=== PATIENT | female | born 1955 | race African-American/Black ===

== ENCOUNTER 2021-11-08 14:52 | Outpatient (CLI) | payer BC | END 2021-11-08 14:53 | disposition home or self-care (01) | LOC: CSHMAMMO 14:52 | PROVIDERS: ATTEND Family Medicine | DX: Z12.31 Encounter for screening mammogram for malignant neoplasm of breast (principal); Z80.3 Family history of malignant neoplasm of breast | CPT/HCPCS: 77063; 77067 ==

== ENCOUNTER 2021-12-27 22:23 | Inpatient (IN) | payer BC ==
[2021-12-27] MEDS ORDERED: Ondansetron PF 4 MG/2 ML Vial ONE ×2 (22:52→22:55)
[2021-12-27] MEDS ORDERED: Morphine 4 MG/ML VIAL ONE (22:55)
[2021-12-27 23:54] LABS: Bilirubin Neg (Negative); Blood, Urine Negative (Negative); Clarity Slightly Cloudy (Clear); Glucose, Urine (Dipstick) 50 mg/dL (Negative); Ketone, Urine 50 mg/dL (Negative); Leukocyte Negative (Negative); Nitrite Negative (Negative); Protein, Urine (Dipstick) 15 mg/dl (Neg-Trace); Specific Gravity, Urine 1.015 (1.002-1.036); Urobilinogen Normal mg/dL (Less than 2)
[2021-12-28] MEDS ORDERED: Piperacillin/Tazobactam 3.375 GM VIAL ONE (00:28)
[2021-12-28 01:22] LABS: ALT (SGPT) 12 U/L (8-55); AST (SGOT) 20 U/L (5-34); Albumin 4.3 g/dL (3.4-4.8); Alkaline Phosphatase 104 U/L (40-110); Anion Gap 13 mmol/L (10-20); BUN (Urea Nitrogen) 9 mg/dL (9.8-20.1); Bilirubin, Total 0.5 mg/dL (0.2-1.2); Calc. Creatinine Clearance 0 mL/min (70-130); Calcium 9.5 mg/dL (7.8-10.44); Carbon Dioxide 23 mmol/L (23-31); Chloride 104 mmol/L (98-107); Globulin 3.2 g/dL (2.4-3.5); Glucose 119 mg/dL (80-115); Lipase 10 U/L (8-78); Potassium 4.2 mmol/L (3.5-5.1); Protein, Total 7.5 g/dL (5.8-8.1); Sodium 136 mmol/L (136-145)
[2021-12-28 01:24] LABS: #Monocytes 0.2 10x3/uL (0.0-1.1); #Neutrophils 7.9 10x3/uL (1.5-8.4); %Basophils 0.2 % (0.0-2.0); %Lymphocytes 9.2 % (18.0-47.0); %Monocytes 2.2 % (0.0-10.0); %Neutrophils 88.2 % (40.0-75.0); Hemoglobin 13.8 g/dL (12.0-15.5); Mean Corpuscular HGB CONC 33.5 g/dL (32.0-36.0); Mean Corpuscular Volume 92.6 fl (81.6-98.3); Platelet Count 256 10x3/uL (150-450); Red Blood Cell (RBC) Count 4.45 10x6/uL (3.90-5.03)
[2021-12-28] MEDS ORDERED: Promethazine HCl 25 MG/ML VIAL ONE (01:52)
[2021-12-28] MEDS ORDERED: Morphine 4 MG/ML VIAL ONE (02:50)
[2021-12-28 04:04] LABS: SARS-CoV-2 NAA Rapid Test Not Detected (NotDetected)
[2021-12-28 04:10] VITALS: BMI 27.1
[2021-12-28] MEDS: Morphine 4 MG/ML VIAL SLOW IVP PRN ×5 (04:26→23:52)
[2021-12-28] MEDS: Sodium Chloride 0.9% 1,000 ML IV SCH ×2 (04:32→14:26)
[2021-12-28] MEDS ORDERED: FLU VACC QS2021-22(6MOS UP)/PF 60 MCG/0.5 ML SYRINGE IM ONE (04:45)
[2021-12-28] MEDS: Ondansetron PF 4 MG/2 ML Vial IVP PRN ×2 (08:33→14:24)
[2021-12-28] MEDS ORDERED: Mag-Al 1200 mg/1200 mg/30 ML UDCUP PO PRN (11:49)
[2021-12-28] MEDS ORDERED: Enoxaparin Sodium 40 MG/0.4 ML SYRINGE SC SCH (12:00)
[2021-12-28] MEDS: Famotidine/PF 20 mg/2ml Vial SLOW IVP SCH (19:50)
[2021-12-29] MEDS: Ondansetron PF 4 MG/2 ML Vial IVP PRN ×2 (00:01→04:52)
[2021-12-29] MEDS: Morphine 4 MG/ML VIAL SLOW IVP PRN ×5 (03:51→23:21)
[2021-12-29] MEDS: Sodium Chloride 0.9% 1,000 ML IV SCH (03:52)
[2021-12-29 05:12] LABS: #Monocytes 0.4 10x3/uL (0.0-1.1); %Basophils 0.4 % (0.0-2.0); %Eosinophils 0.1 % (0.0-6.0); %Monocytes 5.7 % (0.0-10.0); %Neutrophils 72.5 % (40.0-75.0); Hemoglobin 12.7 g/dL (12.0-15.5); Mean Corpuscular HGB CONC 33.5 g/dL (32.0-36.0); Mean Corpuscular Hemoglobin 30.9 pg (27.0-33.0); Mean Corpuscular Volume 92.2 fl (81.6-98.3); Mean Platelet Volume 9.2 fl (7.4-10.4); Platelet Count 258 10x3/uL (150-450); RBC Distribution Width 12.4 % (11.5-14.5); Red Blood Cell (RBC) Count 4.11 10x6/uL (3.90-5.03); White Blood Cell (WBC) Count 6.9 10x3/uL (3.5-10.5)
[2021-12-29 05:16] LABS: Anion Gap 14 mmol/L (10-20); BUN (Urea Nitrogen) 10 mg/dL (9.8-20.1); Calc. Creatinine Clearance 88 mL/min (70-130); Calcium 8.9 mg/dL (7.8-10.44); Carbon Dioxide 21 mmol/L (23-31); Chloride 110 mmol/L (98-107); Glucose 97 mg/dL (80-115); Potassium 3.7 mmol/L (3.5-5.1); Sodium 141 mmol/L (136-145)
[2021-12-29] MEDS: Famotidine/PF 20 mg/2ml Vial SLOW IVP SCH ×2 (09:25→20:57)
[2021-12-29] MEDS: Lisinopril 10 MG TAB PO SCH (20:51)
[2021-12-30] MEDS: Sodium Chloride 0.9% 1,000 ML IV SCH (01:40)
[2021-12-30] MEDS: Ondansetron PF 4 MG/2 ML Vial IVP PRN ×4 (01:43→23:40)
[2021-12-30] MEDS: Morphine 4 MG/ML VIAL SLOW IVP PRN ×4 (04:22→22:22)
[2021-12-30 06:33] LABS: Anion Gap 15 mmol/L (10-20); BUN (Urea Nitrogen) 8 mg/dL (9.8-20.1); Calc. Creatinine Clearance 98 mL/min (70-130); Calcium 8.6 mg/dL (7.8-10.44); Carbon Dioxide 20 mmol/L (23-31); Chloride 110 mmol/L (98-107); Glucose 83 mg/dL (80-115); Potassium 3.6 mmol/L (3.5-5.1); Sodium 141 mmol/L (136-145)
[2021-12-30 06:41] LABS: #Monocytes 0.3 10x3/uL (0.0-1.1); #Neutrophils 2.9 10x3/uL (1.5-8.4); %Basophils 0.7 % (0.0-2.0); %Eosinophils 0.4 % (0.0-6.0); %Lymphocytes 26.5 % (18.0-47.0); %Monocytes 7.3 % (0.0-10.0); %Neutrophils 64.9 % (40.0-75.0); Hemoglobin 11.5 g/dL (12.0-15.5); Mean Corpuscular HGB CONC 33.3 g/dL (32.0-36.0); Mean Corpuscular Hemoglobin 31.2 pg (27.0-33.0); Mean Corpuscular Volume 93.5 fl (81.6-98.3); Mean Platelet Volume 9.4 fl (7.4-10.4); Platelet Count 235 10x3/uL (150-450); RBC Distribution Width 11.9 % (11.5-14.5); Red Blood Cell (RBC) Count 3.69 10x6/uL (3.90-5.03); White Blood Cell (WBC) Count 4.5 10x3/uL (3.5-10.5)
[2021-12-30] MEDS ORDERED: hydrALAZINE 20 MG/ML VIAL SLOW IVP PRN (08:15)
[2021-12-30] MEDS ORDERED: Lisinopril 10 MG TAB PO SCH (09:00)
[2021-12-30] MEDS: Calcium Carbonate 500 MG ChewTAB PO PRN (09:04)
[2021-12-30] MEDS: Famotidine/PF 20 mg/2ml Vial SLOW IVP SCH ×2 (09:04→20:55)
[2021-12-30] MEDS: Lisinopril 10 MG TAB PO SCH (20:51)
[2021-12-31] MEDS: Sodium Chloride 0.9% 1,000 ML IV SCH (03:30)
[2021-12-31] MEDS: Morphine 4 MG/ML VIAL SLOW IVP PRN ×5 (08:23→20:05)
[2021-12-31] MEDS: Famotidine/PF 20 mg/2ml Vial SLOW IVP SCH ×2 (08:23→20:05)
[2021-12-31] MEDS: Ondansetron PF 4 MG/2 ML Vial IVP PRN ×2 (08:23→16:25)
[2021-12-31 08:58] LABS: #Monocytes 0.4 10x3/uL (0.0-1.1); #Neutrophils 1.7 10x3/uL (1.5-8.4); %Basophils 0.6 % (0.0-2.0); %Eosinophils 0.9 % (0.0-6.0); %Lymphocytes 38.2 % (18.0-47.0); %Monocytes 10.6 % (0.0-10.0); %Neutrophils 49.4 % (40.0-75.0); Hemoglobin 11.8 g/dL (12.0-15.5); Mean Corpuscular HGB CONC 34.2 g/dL (32.0-36.0); Mean Corpuscular Hemoglobin 31.1 pg (27.0-33.0); Mean Corpuscular Volume 90.8 fl (81.6-98.3); Mean Platelet Volume 9.1 fl (7.4-10.4); Platelet Count 235 10x3/uL (150-450); RBC Distribution Width 11.8 % (11.5-14.5); White Blood Cell (WBC) Count 3.4 10x3/uL (3.5-10.5)
[2021-12-31 09:02] LABS: Anion Gap 17 mmol/L (10-20); BUN (Urea Nitrogen) 9 mg/dL (9.8-20.1); Calc. Creatinine Clearance 93 mL/min (70-130); Calcium 8.8 mg/dL (7.8-10.44); Carbon Dioxide 19 mmol/L (23-31); Chloride 107 mmol/L (98-107); Glucose 68 mg/dL (80-115); Potassium 3.4 mmol/L (3.5-5.1); Sodium 140 mmol/L (136-145)
[2021-12-31] MEDS: Lisinopril 10 MG TAB PO SCH (20:05)
[2022-01-01] MEDS: Ondansetron PF 4 MG/2 ML Vial IVP PRN ×3 (04:47→20:35)
[2022-01-01] MEDS: Morphine 4 MG/ML VIAL SLOW IVP PRN ×5 (04:48→20:33)
[2022-01-01] MEDS: Famotidine/PF 20 mg/2ml Vial SLOW IVP SCH ×2 (08:18→20:31)
[2022-01-01] MEDS ORDERED: Polyethylene Glycol 3350 17 GM Packet PO SCH (09:15)
[2022-01-01] MEDS: Lisinopril 10 MG TAB PO SCH (20:30)
[2022-01-02] MEDS: Sodium Chloride 0.9% 1,000 ML IV SCH (00:58)
[2022-01-02] MEDS: Morphine 4 MG/ML VIAL SLOW IVP PRN ×3 (04:58→19:34)
[2022-01-02] MEDS: Ondansetron PF 4 MG/2 ML Vial IVP PRN ×2 (04:58→19:35)
[2022-01-02] MEDS: Famotidine/PF 20 mg/2ml Vial SLOW IVP SCH ×2 (08:37→20:00)
[2022-01-02] MEDS: Polyethylene Glycol 3350 17 GM Packet PO SCH (09:31)
[2022-01-02] MEDS ORDERED: Bupivacaine 0.25% HCL 30 ML VIAL ONE (09:39)
[2022-01-02] MEDS ORDERED: EPINEPHrine 1 MG/ML AMP ONE (09:39)
[2022-01-02] MEDS ORDERED: ceFOXitin 1 GM VIAL ONE (09:59)
[2022-01-02] MEDS ORDERED: Fentanyl 250 MCG/5 ML VIAL ONE (10:02)
[2022-01-02] MEDS ORDERED: PROPOFOL 20 ML ONE (10:02)
[2022-01-02] MEDS ORDERED: Lidocaine 1% PF 5 ML VIAL ONE (10:02)
[2022-01-02] MEDS ORDERED: Dexamethasone 4 mg/ml Vial ONE (10:03)
[2022-01-02] MEDS ORDERED: Rocuronium Bromide 10 MG/ML (10ML VIAL) ONE (10:03)
[2022-01-02] MEDS ORDERED: Ondansetron PF 4 MG/2 ML Vial ONE (10:03)
[2022-01-02] MEDS ORDERED: ePHEDrine Sulfate 50 MG/10 ML VIAL ONE (11:14)
[2022-01-02] MEDS ORDERED: Glycopyrrolate 0.2 MG/ML 5 ML SYRINGE ONE (12:36)
[2022-01-02] MEDS ORDERED: Ketorolac Tromethamine 30 MG/ML VIAL ONE (13:04)
[2022-01-02] MEDS ORDERED: Fentanyl 100 MCG/2 ML VIAL ONE (13:20)
[2022-01-02] MEDS: HYDROcodone/Acetaminophen 5/325 mg Tablet PO PRN ×2 (17:08→20:58)
[2022-01-02] MEDS: Lisinopril 10 MG TAB PO SCH (20:00)
[2022-01-03] MEDS: Morphine 4 MG/ML VIAL SLOW IVP PRN ×2 (00:19→17:39)
[2022-01-03] MEDS: Ondansetron PF 4 MG/2 ML Vial IVP PRN ×2 (01:16→20:32)
[2022-01-03] MEDS: HYDROcodone/Acetaminophen 5/325 mg Tablet PO PRN ×4 (01:16→23:01)
[2022-01-03] MEDS: Sodium Chloride 0.9% 1,000 ML IV SCH ×2 (03:07→10:13)
[2022-01-03 08:14] LABS: Anion Gap 15 mmol/L (10-20); BUN (Urea Nitrogen) 11 mg/dL (9.8-20.1); Calc. Creatinine Clearance 77 mL/min (70-130); Calcium 8.2 mg/dL (7.8-10.44); Carbon Dioxide 18 mmol/L (23-31); Chloride 108 mmol/L (98-107); Glucose 123 mg/dL (80-115); Sodium 138 mmol/L (136-145)
[2022-01-03 08:19] LABS: Hemoglobin 11.5 g/dL (12.0-15.5); Mean Corpuscular HGB CONC 35.2 g/dL (32.0-36.0); Mean Corpuscular Hemoglobin 31.3 pg (27.0-33.0); Mean Corpuscular Volume 88.9 fl (81.6-98.3); Mean Platelet Volume 9.2 fl (7.4-10.4); Platelet Count 270 10x3/uL (150-450); Red Blood Cell (RBC) Count 3.68 10x6/uL (3.90-5.03); White Blood Cell (WBC) Count 9.4 10x3/uL (3.5-10.5)
[2022-01-03 08:24] LABS: MDiff Complete? YES
[2022-01-03 08:41] LABS: Band 50 % (5-11); Lymphocytes 6 % (21-51); Monocytes 6 % (0-10); Neutrophil 38 % (42-75)
[2022-01-03 08:43] LABS: Platelet Morphology Comment Appears Adequate; RBC Morphology Normal
[2022-01-03 08:45] LABS: Reflex for Review?? YES
[2022-01-03] MEDS ORDERED: Potassium Chloride 20 MEQ TAB PO SCH (10:00)
[2022-01-03] MEDS: Famotidine/PF 20 mg/2ml Vial SLOW IVP SCH ×2 (10:08→20:32)
[2022-01-03] MEDS: Polyethylene Glycol 3350 17 GM Packet PO SCH (10:08)
[2022-01-03] MEDS: Lisinopril 10 MG TAB PO SCH (20:31)
[2022-01-04] MEDS: Ondansetron PF 4 MG/2 ML Vial IVP PRN ×2 (03:54→13:14)
[2022-01-04] MEDS: HYDROcodone/Acetaminophen 5/325 mg Tablet PO PRN ×5 (03:54→20:09)
[2022-01-04 04:22] LABS: Hemoglobin 11.6 g/dL (12.0-15.5); Mean Corpuscular HGB CONC 34.3 g/dL (32.0-36.0); Mean Corpuscular Hemoglobin 30.7 pg (27.0-33.0); Mean Corpuscular Volume 89.4 fl (81.6-98.3); Mean Platelet Volume 9.5 fl (7.4-10.4); Platelet Count 293 10x3/uL (150-450); RBC Distribution Width 12.3 % (11.5-14.5); Red Blood Cell (RBC) Count 3.78 10x6/uL (3.90-5.03); White Blood Cell (WBC) Count 12.4 10x3/uL (3.5-10.5)
[2022-01-04 05:12] LABS: MDiff Complete? YES
[2022-01-04 05:16] LABS: Band 24 % (5-11); Lymphocytes 6 % (21-51); Monocytes 4 % (0-10); Neutrophil 66 % (42-75)
[2022-01-04 05:17] LABS: Platelet Morphology Comment Appears Adequate; RBC Morphology Normal
[2022-01-04] MEDS: Polyethylene Glycol 3350 17 GM Packet PO SCH (08:27)
[2022-01-04] MEDS: Famotidine/PF 20 mg/2ml Vial SLOW IVP SCH ×2 (08:27→20:09)
[2022-01-04] MEDS: Sodium Chloride 0.9% 1,000 ML IV SCH (10:50)
[2022-01-04] MEDS ORDERED: Promethazine HCl 12.5 MG in Sodium Chloride 0.9% 50 ML IVPB PRN (16:16)
[2022-01-04] MEDS ORDERED: Sodium Chloride 0.9% 50 ML ONE (16:29)
[2022-01-04] MEDS: Lisinopril 10 MG TAB PO SCH (20:09)
[2022-01-05] MEDS: HYDROcodone/Acetaminophen 5/325 mg Tablet PO PRN ×3 (02:21→14:47)
[2022-01-05] MEDS: Calcium Carbonate 500 MG ChewTAB PO PRN ×2 (02:22→10:04)
[2022-01-05] MEDS: Polyethylene Glycol 3350 17 GM Packet PO SCH (10:03)
[2022-01-05] MEDS: Famotidine/PF 20 mg/2ml Vial SLOW IVP SCH (10:04)
[2022-01-05] MEDS: Ondansetron PF 4 MG/2 ML Vial IVP PRN (10:04)
[2022-01-05 12:47] VITALS: BP 137/84; TEMP 98.9
== END 2022-01-05 16:00 | disposition home or self-care (01) | DRG 331 ==
LOC: CSHERS 22:23 → CSHTELE 12-28 04:05
PROVIDERS: ADMIT Student in an Organized Health Care Education/Training Program; ATTEND Student in an Organized Health Care Education/Training Program
PROC: 0DB84ZZ Excision of Small Intestine, Percutaneous Endoscopic Approach (ICD-10-PCS; principal; 2022-01-02)
PROC: 0DN84ZZ Release Small Intestine, Percutaneous Endoscopic Approach (ICD-10-PCS; 2022-01-02)
DX: K56.51 Intestinal adhesions [bands], with partial obstruction (principal); Z20.822 Contact with and (suspected) exposure to COVID-19; K21.9 Gastro-esophageal reflux disease without esophagitis; I10 Essential (primary) hypertension; E78.5 Hyperlipidemia, unspecified; E11.9 Type 2 diabetes mellitus without complications; E78.00 Pure hypercholesterolemia, unspecified; M16.11 Unilateral primary osteoarthritis, right hip; Z98.84 Bariatric surgery status; Z87.442 Personal history of urinary calculi; Z90.710 Acquired absence of both cervix and uterus; Z88.1 Allergy status to other antibiotic agents; Z88.8 Allergy status to other drugs, medicaments and biological substances; Z79.899 Other long term (current) drug therapy; Z87.891 Personal history of nicotine dependence
CPT/HCPCS: 36415; 36416; 74018; 74177; 74250; 80048; 80053; 81003; 83605; 83690; 85025; 85060; 87040; 87086; 88307; 93005; 96365; 96375; 96376; J0171; J0360; J0694; J1100; J1650; J1885; J2270; J2405; J2543; J2550; J2704; J3010; J7050; S0020; S0028; U0002

== ENCOUNTER 2025-06-08 07:56 | Outpatient (CLI) | payer BC | END 2025-06-08 07:57 | disposition home or self-care (01) | LOC: CSHCT 07:56 | PROVIDERS: ATTEND Family Medicine | DX: R10.9 Unspecified abdominal pain (principal); G89.29 Other chronic pain; N20.0 Calculus of kidney; Z98.890 Other specified postprocedural states; K44.9 Diaphragmatic hernia without obstruction or gangrene; K43.9 Ventral hernia without obstruction or gangrene | CPT/HCPCS: 74178 ==